=== PATIENT | male | born 1950 | race Hispanic/Latino ===

== ENCOUNTER 2023-01-12 08:10 | Emergency (ER) | payer MEDICARE ==
[2023-01-12] MEDS ORDERED: Bacitracin 1 PK ONE (08:32)
== END 2023-01-12 08:45 | disposition home or self-care (01) ==
LOC: NAV ERS 08:10
DX: S61.012D Laceration without foreign body of left thumb without damage to nail, subsequent encounter (principal); E78.5 Hyperlipidemia, unspecified; I10 Essential (primary) hypertension; X58.XXXD Exposure to other specified factors, subsequent encounter